=== PATIENT | male | born 1955 | race African-American/Black ===

== ENCOUNTER 2019-09-28 00:38 | Inpatient (IN) | payer MEDICAID ==
[~2019-09-28] VITALS: Ht 182.9 cm; Wt 68.5 kg
[2019-09-28] MEDS ORDERED: ONDANSETRON HCL 4MG/2ML INJ IV STA (01:38)
[2019-09-28] MEDS ORDERED: MORPHINE SULFATE 4 MG/ML CPJ (NOT FOR IM USE) IV STA (01:38)
[2019-09-28 02:08] LABS: BASOPHILS % 0.7 % (0.0-2.0); HEMATOCRIT. 43.1 % (42.0-52.0); HEMOGLOBIN. 14.2 g/dL (14.0-18.0); LYMPHOCYTES % 29.2 % (20.0-50.0); MEAN CORPUSCULAR HEMOGLOBIN 28.5 pg (28.0-32.0); MEAN CORPUSCULAR VOLUME 86.3 fL (80.0-94.0); MEAN PLATELET VOLUME 8.8 fl (7.4-10.4); MONOCYTES % 5.6 % (2.0-8.0); NEUTROPHILS % 62.5 % (40.0-76.0); PLATELET 182 x1000/uL (130-400); RED BLOOD CELL COUNT 4.99 mill/uL (4.7-6.1); RED CELL DISTRIBUTION WIDTH 13.4 % (11.6-14.6)
[2019-09-28 02:11] LABS: CHLORIDE 103 mEq/L (98-107)
[2019-09-28] MEDS ORDERED: SODIUM CHLORIDE 0.9% 1,000 ML IV ONE (03:47)
[2019-09-28 04:53] LABS: PROTHROMBIN TIME 10.5 sec (9.6-11.0)
[2019-09-28 04:53] LABS: CLARITY URINE CLEAR (CLEAR); COLOR URINE YELLOW (YELLOW); KETONES URINE TRACE (NEGATIVE); LEUKOCYTE ESTERASE URINE NEGATIVE (NEGATIVE); NITRITE URINE NEGATIVE (NEGATIVE); OCCULT BLOOD URINE NEGATIVE (NEGATIVE); PROTEIN URINE NEGATIVE (NEGATIVE); SPECIFIC GRAVITY URINE 1.036 (1.005-1.030); UROBILINOGEN URINE 0.2 E.U./dL (0.2-1.0)
[2019-09-28] MEDS ORDERED: MORPHINE SULFATE 4 MG/ML CPJ (NOT FOR IM USE) IV ONE (05:15)
[2019-09-28 08:15] VITALS: BP 115/66
[2019-09-28 08:57] VITALS: BP 115/66
[2019-09-28] MEDS ORDERED: CLONIDINE 0.1MG TABLET PO PRN (10:15)
[2019-09-28] MEDS ORDERED: MORPHINE SULFATE 4 MG/ML CPJ (NOT FOR IM USE) IV NR (10:15)
[2019-09-28] MEDS ORDERED: MORPHINE SULFATE 4 MG/ML CPJ (NOT FOR IM USE) IV PRN (10:15)
[2019-09-28] MEDS ORDERED: DIPHENHYDRAMINE 50MG/ML VIAL IV PRN (10:15)
[2019-09-28] MEDS ORDERED: IPRATROPIUM/ALBUTEROL 0.5-3(2.5)MG/3ML NEB NEB PRN (10:30)
[2019-09-28] MEDS: SODIUM CHLORIDE 0.9% 1,000 ML IV SCH (10:39)
[2019-09-28] MEDS ORDERED: METF-416 PO (10:53)
[2019-09-28 16:00] VITALS: BP 106/63
[2019-09-28] MEDS ORDERED: DEXTROSE 50% WATER 50ML SYRINGE IV PRN (16:00)
[2019-09-28] MEDS: INSULIN LISPRO 100 UNITS/ML SUBCUT SCH ×2 (17:50→21:00)
[2019-09-28] MEDS: BLOOD SUGAR DIAGNOSTIC STRIP TEST SCH ×2 (17:59→21:09)
[2019-09-28 20:00] VITALS: BP 125/59
[2019-09-28] MEDS: KETOROLAC 30MG/ML VIAL IV PRN (20:03)
[2019-09-28] MEDS: FAMOTIDINE 20MG/2ML VIAL IV SCH (21:08)
[2019-09-29] VITALS: BP 120/66
[2019-09-29 04:00] VITALS: BP 122/64
[2019-09-29] MEDS: BLOOD SUGAR DIAGNOSTIC STRIP TEST SCH ×4 (06:46→21:15)
[2019-09-29] MEDS: INSULIN LISPRO 100 UNITS/ML SUBCUT SCH ×4 (07:50→21:00)
[2019-09-29 08:00] VITALS: BP 127/69
[2019-09-29] MEDS: FAMOTIDINE 20MG/2ML VIAL IV SCH ×2 (08:32→21:04)
[2019-09-29 12:00] VITALS: BP 124/68
[2019-09-29] MEDS: SODIUM CHLORIDE 0.9% 1,000 ML IV SCH ×2 (12:57→14:26)
[2019-09-29 16:00] VITALS: BP 121/68
[2019-09-29] MEDS: METFORMIN HCL 500MG TABLET PO SCH (17:51)
[2019-09-29 20:00] VITALS: BP 121/58
[2019-09-29] MEDS: KETOROLAC 30MG/ML VIAL IV PRN (21:05)
[2019-09-30] VITALS: BP 123/75
[2019-09-30 04:00] VITALS: BP 119/69
[2019-09-30] MEDS: BLOOD SUGAR DIAGNOSTIC STRIP TEST SCH ×4 (06:30→21:12)
[2019-09-30] MEDS: INSULIN LISPRO 100 UNITS/ML SUBCUT SCH ×4 (07:50→21:00)
[2019-09-30 08:00] VITALS: BP 121/68
[2019-09-30] MEDS: METFORMIN HCL 500MG TABLET PO SCH ×2 (08:23→18:11)
[2019-09-30] MEDS: FAMOTIDINE 20MG/2ML VIAL IV SCH (08:30)
[2019-09-30] MEDS: KETOROLAC 30MG/ML VIAL IV PRN ×2 (08:44→21:11)
[2019-09-30 12:00] VITALS: BP 126/69
[2019-09-30] MEDS: SODIUM CHLORIDE 0.9% 1,000 ML IV SCH (13:38)
[2019-09-30 16:00] VITALS: BP 133/70
[2019-09-30] MEDS ORDERED: LEVOFLOXACIN 500MG PREMIX 100 ML IV SCH (18:30)
[2019-09-30 20:00] VITALS: BP 124/66
[2019-09-30] MEDS: FAMOTIDINE 20MG TABLET PO SCH (21:12)
[2019-10-01] VITALS: BP 122/69
[2019-10-01] MEDS: SODIUM CHLORIDE 0.9% 1,000 ML IV SCH (01:35)
[2019-10-01 04:00] VITALS: BP 119/61
[2019-10-01] MEDS ORDERED: BUPIVACAINE HCL/PF 0.25% (2.5MG/ML) 10ML ONE (07:03)
[2019-10-01] MEDS ORDERED: EPINEPHRINE 1:1000 1 MG/ML AMP ONE (07:03)
[2019-10-01] MEDS ORDERED: KETOROLAC 30MG/ML VIAL ONE (07:03)
[2019-10-01] MEDS ORDERED: BACITRACIN 15GM TUBE TOP ONE (07:04)
[2019-10-01] MEDS ORDERED: ROPIVACAINE HCL 10MG/ML 20 ML VIAL EPI ONE ×2 (07:04→12:09)
[2019-10-01] MEDS ORDERED: NORMAL SALINE 0.9% 10 ML SYR ONE ×2 (07:04→07:49)
[2019-10-01] MEDS ORDERED: MORPHINE SULFATE 10 MG/ML CPJ ONE (07:04)
[2019-10-01] MEDS ORDERED: VANCOMYCIN HCL 1 GM/VIAL ONE (07:04)
[2019-10-01] MEDS ORDERED: BACITRACIN 50,000 UNITS/VIAL ONE (07:49)
[2019-10-01] MEDS: INSULIN LISPRO 100 UNITS/ML SUBCUT SCH ×4 (07:50→21:00)
[2019-10-01 08:00] VITALS: BP 128/68
[2019-10-01] MEDS: BLOOD SUGAR DIAGNOSTIC STRIP TEST SCH ×4 (08:06→21:00)
[2019-10-01] MEDS: FAMOTIDINE 20MG TABLET PO SCH ×2 (08:08→20:48)
[2019-10-01] MEDS: METFORMIN HCL 500MG TABLET PO SCH ×3 (08:08→17:13)
[2019-10-01] MEDS ORDERED: BUPIVACAINE HCL/DEXTROSE/PF 0.75% 2ML AMP INJ ONE (09:54)
[2019-10-01] MEDS ORDERED: ROCURONIUM BROMIDE 10MG/ML VIAL 5ML IV ONE (09:57)
[2019-10-01] MEDS ORDERED: FENTANYL CITRATE/PF 50MCG/ML 2ML VIAL ONE ×2 (09:57→12:04)
[2019-10-01] MEDS ORDERED: NEOSTIGMINE METHYLSULFATE 1MG/ML 10 ML VIAL ONE (09:57)
[2019-10-01] MEDS ORDERED: PROPOFOL 200MG/20ML VIAL IV ONE (09:57)
[2019-10-01] MEDS ORDERED: MIDAZOLAM HCL 2 MG/2 ML VIAL ONE (09:57)
[2019-10-01] MEDS ORDERED: DEXAMETHASONE 4MG/ML 1ML VIAL ONE (09:57)
[2019-10-01] MEDS ORDERED: EPHEDRINE SULFATE 50MG/ML VIAL ONE (09:57)
[2019-10-01] MEDS ORDERED: ONDANSETRON HCL 4MG/2ML INJ ONE (09:57)
[2019-10-01] MEDS ORDERED: SODIUM CHLORIDE 0.9% 10ML VIAL ONE (09:57)
[2019-10-01] MEDS ORDERED: SUCCINYLCHOLINE CHLORIDE 200MG/10ML IV ONE (09:57)
[2019-10-01] MEDS ORDERED: METOCLOPRAMIDE HCL 10MG/2ML VIAL ONE (09:57)
[2019-10-01] MEDS ORDERED: CEFAZOLIN SODIUM 1000MG/VIAL ONE (09:57)
[2019-10-01] MEDS ORDERED: LIDOCAINE HCL/PF 1% 10 MG/ML 5ML VIAL ONE ×2 (09:57→10:15)
[2019-10-01] MEDS ORDERED: GLYCOPYRROLATE 0.2 MG/ML 2ML VIAL ONE (09:57)
[2019-10-01] MEDS ORDERED: PHENYLEPHRINE HCL 10 MG/ML 1ML (IV VIAL) IV ONE (09:57)
[2019-10-01] MEDS: TRANEXAMIC ACID 1,000 MG in SODIUM CHLORIDE 0.9% 100 ML IV SCH ×2 (11:00→17:00)
[2019-10-01] MEDS ORDERED: SODIUM CHLORIDE 0.9% 1,000 ML IV ONE (13:10)
[2019-10-01] MEDS ORDERED: HYDROMORPHONE HCL/PF 2MG/ML CPJ IV PRN (13:15)
[2019-10-01] MEDS ORDERED: HYDROCODONE/ACETAMINOPHEN 10/325MG TABLET PO PRN (13:15)
[2019-10-01] MEDS ORDERED: MORPHINE SULFATE 2 MG/ML CPJ (NOT FOR IM USE) IV PRN (13:15)
[2019-10-01] MEDS ORDERED: MEPERIDINE HCL/PF 25MG/ML CPJ IV PRN ×2 (13:15)
[2019-10-01] MEDS ORDERED: ONDANSETRON HCL 4MG/2ML INJ IV PRN (13:15)
[2019-10-01] MEDS ORDERED: CEFAZOLIN 1000MG PREMIX 50 ML IV SCH ×3 (13:15→14:00)
[2019-10-01] MEDS ORDERED: HYDROCODONE/ACETAMINOPHEN 5/325MG TABLET PO PRN (13:15)
[2019-10-01] MEDS ORDERED: HYDROMORPHONE PCA 50 ML IV ONE (13:55)
[2019-10-01] MEDS ORDERED: HYDROMORPHONE PCA 10MG/50ML IV PRN (14:15)
[2019-10-01] MEDS ORDERED: DIPHENHYDRAMINE INJ IV PRN (14:15)
[2019-10-01] MEDS ORDERED: NALOXONE INJ IV PRN (14:15)
[2019-10-01] MEDS ORDERED: ONDANSETRON INJ IV PRN (14:15)
[2019-10-01 16:00] VITALS: BP 123/72
[2019-10-01] MEDS ORDERED: TRANEXAMIC ACID 1,000 MG/10 ML IV ONE (17:00)
[2019-10-01] MEDS: CEFAZOLIN 1000MG PREMIX 50 ML IV SCH (17:12)
[2019-10-01 20:00] VITALS: BP 126/66
[2019-10-02] VITALS: BP 120/68
[2019-10-02] MEDS: CEFAZOLIN 1000MG PREMIX 50 ML IV SCH ×3 (02:02→16:59)
[2019-10-02 04:00] VITALS: BP 110/56
[2019-10-02] MEDS: FAMOTIDINE 20MG TABLET PO SCH ×2 (06:53→20:51)
[2019-10-02] MEDS: BLOOD SUGAR DIAGNOSTIC STRIP TEST SCH ×4 (07:35→22:00)
[2019-10-02] MEDS: INSULIN LISPRO 100 UNITS/ML SUBCUT SCH ×4 (07:50→22:30)
[2019-10-02 08:00] VITALS: BP 102/56
[2019-10-02] MEDS: METFORMIN HCL 500MG TABLET PO SCH (08:15)
[2019-10-02] MEDS: LEVOFLOXACIN 500MG TABLET PO SCH (10:47)
[2019-10-02 12:00] VITALS: BP 118/59
[2019-10-02 16:00] VITALS: BP 105/57
[2019-10-02] MEDS: GLYBURIDE 5MG TABLET PO SCH (16:59)
[2019-10-02] MEDS: ONDANSETRON HCL 4MG/2ML INJ IV PRN (20:51)
[2019-10-02] MEDS: SODIUM CHLORIDE 0.9% 1,000 ML IV SCH (22:43)
[2019-10-03] VITALS: BP 131/70
[2019-10-03 04:00] VITALS: BP 131/70
[2019-10-03] MEDS: CEFAZOLIN 1000MG PREMIX 50 ML IV SCH ×3 (05:57→17:33)
[2019-10-03] MEDS: GLYBURIDE 5MG TABLET PO SCH ×2 (06:01→17:33)
[2019-10-03] MEDS: FAMOTIDINE 20MG TABLET PO SCH ×2 (06:01→21:03)
[2019-10-03] MEDS: BLOOD SUGAR DIAGNOSTIC STRIP TEST SCH ×4 (07:20→21:03)
[2019-10-03] MEDS: INSULIN LISPRO 100 UNITS/ML SUBCUT SCH ×4 (07:50→21:00)
[2019-10-03 08:00] VITALS: BP 115/50
[2019-10-03] MEDS: SODIUM CHLORIDE 0.9% 1,000 ML IV SCH (08:57)
[2019-10-03] MEDS: LEVOFLOXACIN 500MG TABLET PO SCH (10:56)
[2019-10-03 12:00] VITALS: BP 115/60
[2019-10-03] MEDS: KETOROLAC 30MG/ML VIAL IV PRN (15:17)
[2019-10-03 16:00] VITALS: BP 111/64
[2019-10-03] MEDS: METFORMIN HCL 500MG TABLET PO SCH (17:33)
[2019-10-03 20:00] VITALS: BP 110/63
[2019-10-04 04:00] VITALS: BP 118/62
[2019-10-04] MEDS: BLOOD SUGAR DIAGNOSTIC STRIP TEST SCH ×3 (06:23→17:50)
[2019-10-04] MEDS: FAMOTIDINE 20MG TABLET PO SCH (06:23)
[2019-10-04] MEDS: GLYBURIDE 5MG TABLET PO SCH ×2 (06:23→17:50)
[2019-10-04] MEDS: INSULIN LISPRO 100 UNITS/ML SUBCUT SCH ×3 (07:50→17:50)
[2019-10-04] MEDS: METFORMIN HCL 500MG TABLET PO SCH ×2 (07:51→18:48)
[2019-10-04 08:00] VITALS: BP 131/74
[2019-10-04] MEDS: ONDANSETRON HCL 4MG/2ML INJ IV PRN (08:37)
[2019-10-04] MEDS: LEVOFLOXACIN 500MG TABLET PO SCH (10:57)
[2019-10-04 12:00] VITALS: BP 133/88
[2019-10-04] MEDS: SODIUM CHLORIDE 0.9% 1,000 ML IV SCH (14:00)
[2019-10-04] MEDS ORDERED: ASPIRIN 325MG TABLET PO NR (15:00)
[2019-10-04 16:00] VITALS: BP 114/60
[2019-10-04 20:00] VITALS: BP 111/55
[2019-10-04] MEDS ORDERED: IBUP-2030 MT (21:13)
[2019-10-04] MEDS ORDERED: ASPI-986 PO (21:14)
[2019-10-04 21:21] VITALS: BP 111/55
== END 2019-10-04 22:00 | disposition home health service (06) | DRG 301 ==
LOC: ER 00:38 → 6EST 05:06 → EDBEDREQ 05:13 → EDBEDREQTM 05:13 → ENRESERV 07:21
PROVIDERS: ADMIT Internal Medicine; ATTEND Internal Medicine
PROC: 0SRB0JA Replacement of Left Hip Joint with Synthetic Substitute, Uncemented, Open Approach (ICD-10-PCS; principal; 2019-10-01)
DX: S72.032A Displaced midcervical fracture of left femur, initial encounter for closed fracture (principal); E11.9 Type 2 diabetes mellitus without complications; I10 Essential (primary) hypertension; M16.12 Unilateral primary osteoarthritis, left hip; W01.0XXA Fall on same level from slipping, tripping and stumbling without subsequent striking against object, initial encounter; Y93.89 Activity, other specified; Y92.89 Other specified places as the place of occurrence of the external cause; Y99.8 Other external cause status; Z83.3 Family history of diabetes mellitus; Z88.8 Allergy status to other drugs, medicaments and biological substances; Z79.84 Long term (current) use of oral hypoglycemic drugs; Z91.018 Allergy to other foods
CPT/HCPCS: 36415; 71045; 73501; 73502; 73552; 76000; 80048; 81003; 82962; 86850; 86900; 88305; 88311; 93005; 93970; 96361; 96374; 96375; 96376; 97110; 97116; 97162; 97760; 99285; C1776; J0330; J0690; J1100; J1170; J1815; J1885; J1956; J2250; J2270; J2370; J2405; J2704; J2710; J2765; J2795; J3010; J3370; J3490; J7030; J7050